=== PATIENT | female | born 1955 | race Caucasian/White ===

== ENCOUNTER 2017-09-04 05:20 | Inpatient (IN) | payer OTHER ==
[2017-08-30 14:49] LABS: BASOPHILS % (AUTO) 0.6 % (0-1); EOSINOPHILS # (AUTO) 0.1 X10'3 (0-0.9); EOSINOPHILS % (AUTO) 1.2 % (0-6); LYMPHOCYTES # (AUTO) 1.7 X10'3 (1.1-4.8); LYMPHOCYTES % (AUTO) 35.2 % (21-51); MEAN CORPUSCULAR HEMOGLOBIN 33.5 PG (27.0-31.0); MEAN CORPUSCULAR HGB CONC 34.9 % (33.0-36.5); MEAN CORPUSCULAR VOLUME 95.8 FL (78-98); MEAN PLATELET VOLUME 7.3 FL (7.4-10.4); MONOCYTES # (AUTO) 0.5 X10'3 (0-0.9); MONOCYTES % (AUTO) 11.4 % (2-12); NEUTROPHILS # (AUTO) 2.5 X10'3 (1.8-7.7); NEUTROPHILS % (AUTO) 51.6 % (42-75); PRE OP HEMATOCRIT 38.7 % (35.0-45.0); PRE OP HEMOGLOBIN 13.5 g/dL (12.0-16.0); PRE OP PLATELET COUNT 275 X10'3 (140-440); RED BLOOD COUNT 4.03 X10'6 (4.20-5.60); RED CELL DISTRIBUTION WIDTH 12.6 % (11.5-14.5)
[2017-08-30 14:53] LABS: CLARITY,URINE Clear (Clear); COLOR,URINE Yellow (Yellow); GLUCOSE, URINE Negative (Neg); KETONES,URINE 15 mg/dl (Neg); LEUKOCYTE ESTERASE ,URINE Trace (Neg); NITRITES, URINE Negative (Neg); OCCULT BLOOD,URINE Negative (Neg); PROTEIN,URINE Negative (Neg)
[2017-08-30 14:54] LABS: UA COLLECTION TYPE NON-SPECIFIED
[2017-08-30 15:00] LABS: BACTERIA,URINE NONE SEEN /HPF (Neg); MUCUS STRANDS NONE SEEN /LPF (Neg); RBC,URINE NONE SEEN /HPF (0-2); SQUAMOUS EPITHELIAL CELL,UR FEW /LPF (FEW); WBC,URINE 0-4 /HPF (0-4)
[2017-08-30 15:05] LABS: ALBUMIN/GLOBULIN RATIO 1.1 (1.1-1.5); ALKALINE PHOSPHATASE 73 IU/L (46-116); BLOOD UREA NITROGEN 13 MG/DL (7-18); BUN/CREATININE RATIO 16.3 (6.6-38.0); CALCIUM 9.4 MG/DL (8.5-10.1); CHLORIDE 104 MMOL/L (99-107); PRE OP ALT 36 U/L (30-65); PRE OP ANION GAP 12 (8-16); PRE OP AST 27 U/L (10-37); PRE OP BILIRUB, TOTAL 0.6 MG/DL (0.0-1.0); PRE OP GLUCOSE 98 MG/DL (70-104); PRE OP POTASSIUM 4.1 MMOL/L (3.4-5.1); PRE OP SODIUM 140 MMOL/L (135-145); TOTAL CARBON DIOXIDE 24.4 MMOL/L (24-32); TOTAL PROTEIN 7.6 G/DL (6.4-8.2); eGFR 72 ML/MIN
[2017-09-04] VITALS (25 sets, daily range): BP systolic 95–133; BP diastolic 50–86
[~2017-09-04] VITALS: Ht 167.6 cm; Wt 56.0 kg
[~2017-09-04 05:20] MED LIST: ACYC-202 PO; ALPR-623 PO; FOLATE PO; MAGNESIUM/CALCIUM PO; MULT1TAB74 PO; QUET50TA22 PO; TRAN10TA2 PO; VITAMIN B PO; ringers solution, lacted 1,000 ML IV SCH
[2017-09-04] MEDS ORDERED: celeCOXIB 100mg capsule PO ONE (05:30)
[2017-09-04] MEDS ORDERED: oxyCODONE SR 10mg (sust. release) tab PO ONE (05:30)
[2017-09-04] MEDS ORDERED: metoclopramide 5 mg/ml inj IV ONE (05:30)
[2017-09-04] MEDS ORDERED: famotidine 20mg tablet PO ONE (05:30)
[2017-09-04] MEDS ORDERED: VANCOMYCIN INJ 1000 MG in NORMAL SALINE 250ml IV.SOLN IV ONE (05:30)
[2017-09-04] MEDS ORDERED: acetaminophen 325mg tablet PO ONE (05:30)
[2017-09-04] MEDS ORDERED: cefazolin/dext.iso 2gm/50ml 50 ML IV ONE (05:30)
[2017-09-04] MEDS ORDERED: gabapentin 300mg capsule PO ONE (05:30)
[2017-09-04] MEDS ORDERED: tranexamic acid inj. 1,000 MG in normal saline 100ml IV soln 90 ML IV ONE (05:30)
[2017-09-04] MEDS ORDERED: LIDOcaine 1% (10mg/ml) 2ml vial ONE (06:07)
[2017-09-04] MEDS ORDERED: metoclopramide 10mg tablet PO ONE (06:30)
[2017-09-04] MEDS ORDERED: epiNEPHrine 1 mg/ml inj ONE (06:53)
[2017-09-04] MEDS ORDERED: ketorolac trometh. 30mg/ml inj. ONE (06:53)
[2017-09-04] MEDS ORDERED: fentaNYL /PF 50mcg/ml 5ml ampule ONE (06:53)
[2017-09-04] MEDS ORDERED: cloNIDine hcl/PF 100mcg/ml inj ONE (06:53)
[2017-09-04] MEDS ORDERED: vancomycin 1,000mg inj ONE (06:53)
[2017-09-04] MEDS ORDERED: MIDAZolam 5mg/5ml vial ONE (06:54)
[2017-09-04] MEDS ORDERED: ROPIVAcaine 0.5% (5mg/ml) 30ml vial ONE (06:54)
[2017-09-04] MEDS ORDERED: MORPHINE SULFATE/PF 0.5 MG/ML 10ML AMPUL ONE (07:10)
[2017-09-04] MEDS ORDERED: dexamethasone sod phosphate 4mg/ml inj. ONE (07:58)
[2017-09-04] MEDS ORDERED: propofol inj 20 ML IV ONE (07:58)
[2017-09-04] MEDS ORDERED: ondansetron/PF 4mg/2ml inj ONE (07:58)
[2017-09-04] MEDS ORDERED: ringers solution, lacted 1,000 ML IV SCH (08:09)
[2017-09-04] MEDS ORDERED: proCHLORperazine 10 MG/2 ml inj IV PRN (08:10)
[2017-09-04] MEDS ORDERED: fentaNYL/PF 50MCG/1 ML 2ML syringe IV PRN ×2 (08:10)
[2017-09-04] MEDS ORDERED: meperidine/PF 50mg/ml syringe IV PRN (08:10)
[2017-09-04] MEDS ORDERED: ondansetron/PF 4mg/2ml inj IV PRN ×3 (08:10→09:20)
[2017-09-04] MEDS ORDERED: acetaminophen 1,000mg/100ml IV 100 ML IV PRN (08:10)
[2017-09-04] MEDS ORDERED: HYDROmorphone inj. 0.5 MG/0.5 ML DISP.SYRIN IV PRN ×2 (08:10→09:20)
[2017-09-04] MEDS ORDERED: diphenhydrAMINE 50 mg/ml inj IV PRN (08:20)
[2017-09-04] MEDS ORDERED: phenylephrine 10mg/ml inj IV ONE (08:45)
[2017-09-04] MEDS ORDERED: bisacodyl 10mg suppository rectal RC PRN (09:20)
[2017-09-04] MEDS ORDERED: acetaminophen 325mg tablet PO PRN (09:20)
[2017-09-04] MEDS ORDERED: oxyCODONE/APAP 10/325mg tablet PO PRN (09:20)
[2017-09-04] MEDS ORDERED: magnesium hydroxide 30ml (MOM) UD suspension PO PRN (09:20)
[2017-09-04] MEDS ORDERED: diphenhydrAMINE 25mg capsule PO PRN ×2 (09:20)
[2017-09-04] MEDS ORDERED: acyclovir 200 MG capsule PO PRN (11:09)
[2017-09-04] MEDS: TRANYLCYPROMINE 10 MG PO SCH ×2 (12:51→20:14)
[2017-09-04] MEDS: potassium cl 20mEq in 1/2 NS 1,000 ML IV SCH ×2 (12:51→17:19)
[2017-09-04] MEDS: oxyCODONE/APAP 10/325mg tablet PO SCH ×3 (12:52→20:13)
[2017-09-04] MEDS: gabapentin 300mg capsule PO SCH ×2 (12:52→20:13)
[2017-09-04] MEDS: cefazolin 1gm/NS 100mL 100 ML IV SCH (16:16)
[2017-09-04] MEDS ORDERED: vancomycin/NS 1 GM ADD-VANTAGE 250 ML IV SCH (20:00)
[2017-09-04] MEDS: celeCOXIB 100mg capsule PO SCH (20:13)
[2017-09-04] MEDS ORDERED: sennosides 8.6mg tablet PO SCH (21:00)
[2017-09-04] MEDS ORDERED: QUEtiapine 25mg tablet PO SCH (21:00)
[2017-09-05] MEDS: oxyCODONE/APAP 10/325mg tablet PO SCH ×4 (00:11→12:47)
[2017-09-05] MEDS: cefazolin 1gm/NS 100mL 100 ML IV SCH (00:11)
[2017-09-05] MEDS: potassium cl 20mEq in 1/2 NS 1,000 ML IV SCH (00:12)
[2017-09-05 01:56] VITALS: BP 102/51
[2017-09-05 06:23] LABS: ANION GAP 9 (8-16); CHLORIDE 108 MMOL/L (99-107); POTASSIUM 4.5 MMOL/L (3.5-5.1); SODIUM 141 MMOL/L (135-145)
[2017-09-05 06:37] LABS: BASOPHILS % (AUTO) 0.4 % (0-1); EOSINOPHILS % (AUTO) 0.6 % (0-6); HEMATOCRIT 30.8 % (35.0-45.0); HEMOGLOBIN 10.5 g/dl (12.0-16.0); LYMPHOCYTES # (AUTO) 1.2 X10'3 (1.1-4.8); LYMPHOCYTES % (AUTO) 14.4 % (21-51); MEAN CORPUSCULAR HEMOGLOBIN 32.9 PG (27.0-31.0); MEAN CORPUSCULAR VOLUME 96.6 FL (78-98); MEAN PLATELET VOLUME 8.2 FL (7.4-10.4); MONOCYTES % (AUTO) 12.5 % (2-12); NEUTROPHILS # (AUTO) 5.9 X10'3 (1.8-7.7); NEUTROPHILS % (AUTO) 72.1 % (42-75); PLATELET COUNT 169 X10'3 (140-440); RED BLOOD COUNT 3.19 X10'6 (4.20-5.60); RED CELL DISTRIBUTION WIDTH 12.9 % (11.5-14.5); WHITE BLOOD COUNT 8.2 X10'3 (4.5-11.0)
[2017-09-05 06:45] VITALS: BP 129/65
[2017-09-05] MEDS ORDERED: ALPRAZolam 0.25mg tablet PO SCH (08:00)
[2017-09-05] MEDS ORDERED: VITAMIN B6 PO SCH (08:00)
[2017-09-05] MEDS ORDERED: CALCIUM PO SCH (08:00)
[2017-09-05] MEDS ORDERED: MAGNESIUM PO SCH (08:00)
[2017-09-05] MEDS ORDERED: FOLATE PO SCH (08:00)
[2017-09-05] MEDS ORDERED: ASPI-1 PO (08:03)
[2017-09-05] MEDS ORDERED: aspirin 325mg tablet PO SCH (08:30)
[2017-09-05] MEDS: gabapentin 300mg capsule PO SCH (08:34)
[2017-09-05] MEDS: TRANYLCYPROMINE 10 MG PO SCH (08:34)
[2017-09-05] MEDS: celeCOXIB 100mg capsule PO SCH (08:34)
[2017-09-05 10:00] VITALS: BP 108/67
[2017-09-05 10:34] VITALS: BP 120/71
== END 2017-09-05 13:00 | disposition home or self-care (01) | DRG 470 ==
LOC: PAS IN 05:20 → EDSTATUS 07:30 → ORTHO 4S 11:15
PROVIDERS: ADMIT Orthopaedic Surgery; ATTEND Orthopaedic Surgery
PROC: 3E0T3BZ Introduction of Anesthetic Agent into Peripheral Nerves and Plexi, Percutaneous Approach (ICD-10-PCS; 2017-09-04)
PROC: 0SRD0J9 Replacement of Left Knee Joint with Synthetic Substitute, Cemented, Open Approach (ICD-10-PCS; principal; 2017-09-04 07:20)
DX: M17.0 Bilateral primary osteoarthritis of knee (principal); D62 Acute posthemorrhagic anemia; F32.9 Major depressive disorder, single episode, unspecified; F41.9 Anxiety disorder, unspecified; I10 Essential (primary) hypertension; Z72.89 Other problems related to lifestyle; Z79.899 Other long term (current) drug therapy; Z82.49 Family history of ischemic heart disease and other diseases of the circulatory system
CPT/HCPCS: 36415; 71046; 73560; 80051; 80053; 81001; 85025; 85610; 85730; 86885; 86900; 86901; 87070; 87088; 97110; 97116; 97161; A6449; A6455; A7000; C1713; C1758; C1776; J0171; J0690; J0735; J1100; J1885; J2250; J2274; J2370; J2405; J2704; J2795; J3010; J3370; J3490; J7030; J7120; J8597

== ENCOUNTER 2017-09-13 21:35 | Emergency (ER) | payer OTHER ==
[~2017-09-13] VITALS: Ht 167.6 cm; Wt 56.3 kg
[~2017-09-13 21:35] MED LIST changes: +ASPI-1 PO; -ringers solution, lacted 1,000 ML IV SCH
[2017-09-13 21:37] VITALS: BP 95/54
== END 2017-09-13 23:43 | disposition home or self-care (01) ==
LOC: ER 21:36
DX: M25.562 Pain in left knee (principal); I10 Essential (primary) hypertension; Z88.5 Allergy status to narcotic agent; Z79.82 Long term (current) use of aspirin; Z79.899 Other long term (current) drug therapy
CPT/HCPCS: 29505; 29515; 73560; 99285